=== PATIENT | male | born 1985 | race Caucasian/White ===

== ENCOUNTER 2020-03-12 10:54 | Emergency (ER) | payer OTHER ==
[2020-03-12 11:08] VITALS: BP 148/100
--- NOTE | 2020-03-12 11:34 | UC ---
Respiratory Complaint HPI - HPI Summary HPI Summary: The patient is a 34-year-old male that tells me he has had a sore throat and cough 2 days. He denies any fever or chills he denies any chest pain or shortness of breath. He states his chest does feel rapidly. He works as a hospitalist. His has had a cough for 1-1/2-2 weeks and was recently tested for Covid 19. He has never had bronchospasm in the past. - History of Current Complaint Chief Complaint: UCGeneralIllness Stated Complaint: COUGH/SORE THROAT Time Seen by Provider: 03/12/20 10:56 Hx Obtained From: Patient Onset/Duration: Sudden Onset, Lasting Days Timing: Constant Severity Initially: Mild Severity Currently: Mild Pain Intensity: 2 Pain Scale Used: 0-10 Numeric Character: Cough: Nonproductive Aggravating Factors: Nothing Alleviating Factors: Nothing Associated Signs And Symptoms: Positive: Wheezing. Negative: Fever, Chills, Calf Pain, Calf Swelling, Edema, Nasal Congestion, Hoarseness, Sinus Discomfort - Allergies/Home Medications Allergies/Adverse Reactions: Allergies Allergy/AdvReac Type Severity Reaction Status Date / Time No Known Allergies Allergy Verified 03/12/20 11:08 Home Medications: Home Medications Albuterol HFA INHALER* [Ventolin HFA Inhaler*] 2 puff INH QID #1 mdi 03/12/20 [ Rx] Multivitamin [Multiple Vitamins] 1 tab PO DAILY 03/12/20 [History Confirmed ] PMH/Surg Hx/FS Hx/Imm Hx Previously Healthy: Yes - Surgical History Surgical History: None - Social History Alcohol Use: None Substance Use Type: None Smoking Status (MU): Never Smoked Tobacco Review of Systems All Other Systems Reviewed And Are Negative: Yes Constitutional: Positive: Negative Skin: Positive: Negative Eyes: Positive: Negative ENT: Positive: Sore Throat Respiratory: Positive: Cough Cardiovascular: Positive: Negative Gastrointestinal: Positive: Negative Genitourinary: Positive: Negative Motor: Positive: Negative Neurovascular: Positive: Negative Musculoskeletal: Positive: Negative Neurological/Mental Status: Positive: Negative Psychological: Positive: Negative Physical Exam Triage Information Reviewed: Yes Appearance: Well-Appearing, No Pain Distress, Well-Nourished Vital Signs: Initial Vital Signs Temp 97.6 F 03/12/20 11:05 Pulse 80 03/12/20 11:05 Resp 16 03/12/20 11:05 BP 148/100 03/12/20 11:05 Pulse Ox 100 03/12/20 11:05 Vital Signs Reviewed: Yes Eyes: Positive: Conjunctiva Clear ENT: Positive: Hearing grossly normal, Pharyngeal erythema, Uvula midline. Negative: Nasal congestion, Nasal drainage, Tonsillar exudate, Trismus, Muffled voice, Hoarse voice, Sinus tenderness Dental Exam: Normal Neck: Positive: Supple, Nontender Respiratory: Positive: No respiratory distress, No accessory muscle use, Wheezing Cardiovascular: Positive: RRR, No Murmur Musculoskeletal: Positive: ROM Intact, No Edema Neurological: Positive: Alert Psychological Exam: Normal Skin Exam: Normal Diagnostics - Laboratory Lab Results: strep negative - Radiology No standard instances Radiology Interpretation Completed By: Radiologist Summary of Radiographic Findings: NAD Respiratory Course/Dx - Differential Dx/Diagnosis Provider Diagnosis: Viral syndrome, Bronchospasm, Educated about COVID-19 virus infection Discharge ED - Sign-Out/Discharge Documenting (check all that apply): Patient Departure All imaging exams completed and their final reports reviewed: Yes - Discharge Plan Condition: Stable Disposition: HOME Prescriptions: Albuterol HFA INHALER* [Ventolin HFA Inhaler*] 2 puff INH QID #1 mdi Patient Education Materials: How to Use a Metered-Dose Inhaler (ED) Forms: COVID-19 Tested & Isolation Referrals: Jason Najera MD [Primary Care Provider] - If Needed - Billing Disposition and Condition Condition: STABLE Disposition: Home
== END 2020-03-12 12:09 | disposition home or self-care (01) ==
LOC: UCEAST 10:54
DX: B34.9 Viral infection, unspecified (principal); J98.01 Acute bronchospasm; Z20.828 Contact with and (suspected) exposure to other viral communicable diseases
CPT/HCPCS: 71046; 87635; 87651; 99211; G0463; G2023